=== PATIENT | male | born 1955 | race Caucasian/White ===

== ENCOUNTER → 2018-06-02 | Day surgery (SDC) | payer BC ==
[2018-06-01 13:53] VITALS: BMI 23.7
[~2018-06-02] MED LIST: Isoproterenol 0.2 MG/1 ML AMP ONE; Lidocaine 1% (PF) 30 ML VIAL ONE; Midazolam HCl 2 mg/2 ml Vial ONE; PROPOFOL 20 ML ONE; PROPOFOL 200 MG/20 ML VIAL ONE; Propofol 500 MG/50 ML VIAL ONE
[2018-06-02 11:47] LABS: PTT 28.6 SEC (22.9-36.1); Prothrombin Time 12.7 SEC (12.0-14.7)
[2018-06-02 11:48] LABS: #Basophils 0.1 thou/uL (0.0-0.2); #Eosinphils 0.4 thou/uL (0.0-0.7); #Lymphocytes 2.1 thou/uL (1.20-3.40); #Monocytes 0.5 thou/uL (0.11-0.59); %Basophils 1.2 % (0.0-1.0); %Eosinophils 6.8 % (0.0-10.0); %Lymphocytes 34.7 % (21.0-51.0); %Monocytes 8.6 % (0.0-10.0); %Neutrophils 48.6 % (42.0-75.0); Hemoglobin 15.7 g/dL (14.0-18.0); Mean Corpuscular Hemoglobin 30.5 pg (27.0-31.0); Mean Corpuscular Volume 89.9 fL (78.0-98.0); Mean Platelet Volume 7.2 fL (7.4-10.4); Platelet Count 263 thou/uL (130-400); RBC Distribution Width 12.3 % (11.5-14.5); Red Blood Cell (RBC) Count 5.15 mill/uL (4.70-6.10); White Blood Cell (WBC) Count 6.2 thou/uL (4.8-10.8)
[2018-06-02 12:00] LABS: Anion Gap 8 mmol/L (10-20); BUN (Urea Nitrogen) 17 mg/dL (8.4-25.7); Calc. Creatinine Clearance 91 mL/min (70-130); Calcium 9.4 mg/dL (7.8-10.44); Carbon Dioxide 27 mmol/L (23-31); Chloride 107 mmol/L (98-107); Estimated GFR-MDRD 86; Glucose 88 mg/dL (80-115); Potassium 4.2 mmol/L (3.5-5.1); Sodium 138 mmol/L (136-145)
--- NOTE | 2018-06-03 09:05 | OP ---
DATE OF PROCEDURE: 06/02/2018 ELECTROPHYSIOLOGY STUDY AND RADIOFREQUENCY ABLATION REFERRING PHYSICIAN: Britton Scott MD REASON FOR PROCEDURE: Mr. Hudson is a 63-year-old man with history of recurrent SVT requiring diltiazem for suppression, which there are still breakthroughs. He has moderate coronary artery disease in the past, hypertension, dyslipidemia. Here for EP study to evaluate inducibility and possible ablation of arrhythmias. DESCRIPTION OF PROCEDURE: The patient received propofol and deep sedation by Anesthesia specialist. After adequate level of sedation achieved, both femoral venous areas were prepped, draped, and anesthetized using subcutaneous lidocaine. A 6 and 8-Palauan sheaths were introduced after cannulation of left femoral vein under fluoroscopic guidance. On the right femoral vein, an 8- [place] sheath was introduced in a similar fashion. Through the left catheters, a deca and octapolar catheters were advanced to the right ventricle, His bundle , right atrium, right ventricle and CS location. Pacing, mapping, and recording were performed in each locations. On basic EP study, following findings were found. The baseline rhythm was sinus rhythm with cycle length of 898 milliseconds, NJ 168, QRS 59, QT 380, AH 112, and HV 50 milliseconds. The AV Wenckebach cycle length was 320 milliseconds. VA Wenckebach cycle length was 360 milliseconds. The central retrograde VA conduction was noted. AV erika ERP was then checked and found to be 600/300 milliseconds and dual AV erika physiology was observed. With V- pacing, concentric retrograde VA conduction was noted. With burst atrial pacing , we were able to induce AV erika reentrant tachycardia with short VA timing. Cycle length was 380 milliseconds. Overdrive ventricular pacing produced ANALI response. At this point, decision was made to ablate the slow pathway. In the slow pathway area, multiple keys were delivered. A total of 9 ablations at total ablation time of 6 minutes was performed. During the ablation, junctional beats were observed. No definite AV block was seen. After the ablation, the AV Wenckebach cycle length changed to 410 milliseconds. Isuprel was administered at this point and repeated burst atrial pacing attempted to induce tachyarrhythmias, but we are not able to re-induce the tachycardia. With Isuprel, the AV Wenckebach increased to 280 milliseconds and again no re-inducible tachycardia was seen. Post-ablation fluroscopy revealed no change in the cardiac silhouette. The patient tolerated the procedure well. No complications noted. CONCLUSION: 1. 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 2. Slow pathway ablation eliminated inducible AV erika reentrant tachycardia. 3. No evidence of accessory pathway. 4. Normal sinus and AV erika function noted. PLAN: Consider titrating down AV erika blocking agents. MTDD
== END ==
LOC: CCL 10:49
PROVIDERS: ATTEND Internal Medicine Cardiovascular Disease
DX: I47.1 Supraventricular tachycardia (principal); I25.10 Atherosclerotic heart disease of native coronary artery without angina pectoris; I10 Essential (primary) hypertension; E78.5 Hyperlipidemia, unspecified; Z85.46 Personal history of malignant neoplasm of prostate; Z79.82 Long term (current) use of aspirin; Z79.899 Other long term (current) drug therapy
CPT/HCPCS: 36415; 76942; 80048; 85025; 85610; 85730; 93005; 93010; 93613; 93623; 93653; C1730; C1769; J1644; J2001; J2250; J2704

== ENCOUNTER 2019-01-04 07:26 | Outpatient (CLI) | payer BC ==
--- NOTE | 2019-01-04 08:48 | RAD ---
Esophagram and air-contrast with tablet HISTORY: Dysphagia. Meat sticks in lower esophagus. FINDINGS: Air contrast and barium evaluation was performed. There was decrease in primary and seconda ry peristalsis. Mild nonpropulsive tertiary type contractions. Small hiatal hernia with small amount of gastroesophageal reflux. A 12 mm barium tablet traversed the esophagus without holdup. Fluoroscopy time 1.0 minute. IMPRESSION: Small hiatal hernia with small amount of gastroesophageal reflux. Presbyesophagus. No evidence of esophageal stricture or mass.
== END 2019-01-04 07:27 | disposition home or self-care (01) ==
LOC: RAD 07:26
PROVIDERS: ATTEND Internal Medicine Geriatric Medicine
DX: K21.0 Gastro-esophageal reflux disease with esophagitis (principal); R13.10 Dysphagia, unspecified; K21.9 Gastro-esophageal reflux disease without esophagitis; K44.9 Diaphragmatic hernia without obstruction or gangrene; K22.8 Other specified diseases of esophagus
CPT/HCPCS: 74220

== ENCOUNTER 2019-06-29 16:24 | Outpatient (CLI) | payer BC | END 2019-06-29 16:25 | disposition home or self-care (01) | LOC: CTENTCT 16:24 | PROVIDERS: ATTEND Student in an Organized Health Care Education/Training Program | DX: J32.9 Chronic sinusitis, unspecified (principal) | CPT/HCPCS: 70486 ==

== ENCOUNTER 2020-01-17 07:33 | Outpatient (CLI) | payer BC ==
[2020-01-17] MEDS ORDERED: Iopamidol-370 76% 500 ML 1 ML ONE (09:47)
--- NOTE | 2020-01-17 09:48 | CT ---
CT ANGIOGRAM OF THE CHEST WITH IV CONTRAST AND 3D POSTPROCESSING: Date: 01/17/2020 HISTORY: Thoracic aortic ectasia. FINDINGS: The thoracic aorta is well opacified without intimal flap to suggest dissection. The aortic measurements are as follows: Aortic annulus: 2.4 cm Aortic sinus of Valsalva: 3.0 cm Sinotubular junction: 3.3 cm Mid ascending aorta: 4.2 cm High ascending aorta: 2.9 cm Descending thoracic aorta: 2.7 cm No pleural or pericardial effusions are seen. There is minimal scarring in the lung apices. No lobar consolidation, lung nodules, or masses are seen. There are calcified lymph nodes in the left hilum. D egenerative changes are present in the spine. Upper abdominal tomograms demonstrate calcified granulo mas in the spleen and a 2.8 cm cyst in the inferior aspect of the right lobe of the liver. A small hi atal hernia is present. IMPRESSION: 1. Ectatic thoracic aortic without aneurysm or dissection. 2. Hepatic cyst. 3. Small hiatal hernia. POS: [facility]
== END 2020-01-17 07:34 | disposition home or self-care (01) ==
LOC: BICCT 07:33
PROVIDERS: ATTEND Physician Assistant
DX: I77.810 Thoracic aortic ectasia (principal); K44.9 Diaphragmatic hernia without obstruction or gangrene; K76.89 Other specified diseases of liver
CPT/HCPCS: 71275; 82565; Q9967

== ENCOUNTER 2020-02-15 10:08 | Day surgery (SDC) | payer BC ==
[2020-02-14 09:35] VITALS: BMI 23.7
[~2020-02-15 10:08] MED LIST changes: +Iopamidol 370 76% 100 ML VIAL ONE; -Isoproterenol 0.2 MG/1 ML AMP ONE; -Lidocaine 1% (PF) 30 ML VIAL ONE; -Midazolam HCl 2 mg/2 ml Vial ONE; -PROPOFOL 20 ML ONE; -PROPOFOL 200 MG/20 ML VIAL ONE; -Propofol 500 MG/50 ML VIAL ONE
[2020-02-15] MEDS ORDERED: Fentanyl 100 MCG/2 ML VIAL ONE (12:26)
[2020-02-15] MEDS ORDERED: Midazolam HCl 2 mg/2 ml Vial ONE (12:26)
== END 2020-02-15 18:05 | disposition home or self-care (01) ==
LOC: CCL 10:08
PROVIDERS: ATTEND Internal Medicine Cardiovascular Disease
PROC: 4A023N8 Measurement of Cardiac Sampling and Pressure, Bilateral, Percutaneous Approach (ICD-10-PCS; principal; 2020-02-15)
PROC: B2111ZZ Fluoroscopy of Multiple Coronary Arteries using Low Osmolar Contrast (ICD-10-PCS; principal; 2020-02-15)
DX: I35.0 Nonrheumatic aortic (valve) stenosis (principal); I47.1 Supraventricular tachycardia; I77.810 Thoracic aortic ectasia; E78.00 Pure hypercholesterolemia, unspecified; I10 Essential (primary) hypertension; E78.5 Hyperlipidemia, unspecified; Z82.49 Family history of ischemic heart disease and other diseases of the circulatory system; Z79.82 Long term (current) use of aspirin; Z79.899 Other long term (current) drug therapy
CPT/HCPCS: 76942; 93460; 93561; 93567; 99152; J1644; J2250; J3010; Q9967

== ENCOUNTER 2023-03-17 15:54 | Outpatient (CLI) | payer BC | END 2023-03-17 15:55 | disposition home or self-care (01) | LOC: ULT 15:54 | PROVIDERS: ATTEND Family Medicine | DX: R09.89 Other specified symptoms and signs involving the circulatory and respiratory systems (principal) | CPT/HCPCS: 93880 ==